=== PATIENT | male | born 1955 | race Caucasian/White ===

== ENCOUNTER 2018-03-02 21:17 | Emergency (ER) | payer MEDICAID ==
[2018-03-02] MEDS: KETOROLAC 30 MG INJ IM (21:48)
[2018-03-02] MEDS: HYDROCODONE/APAP (5/325) TAB PO (21:49)
== END 2018-03-03 00:11 | disposition home or self-care (01) ==
LOC: FTE 03-03 00:11
DX: M25.551 Pain in right hip (principal)
CPT/HCPCS: 73510; 96372; 99284-25